=== PATIENT | male | born 1950 | race Two or more races ===

== ENCOUNTER 2023-10-07 15:38 | Inpatient (IN) | payer OTHER ==
[~2023-10-07] VITALS: Ht 172.7 cm; Wt 86.2 kg
[2023-10-07] MEDS ORDERED: TAMS0.4C (15:48)
[2023-10-07 18:28] LABS: HEMATOCRIT 24.2 % (39.0-48.0); MEAN CELL VOLUME 87.1 fL (80.0-100.00); MEAN CORPUSCULAR HGB CONC 33.3 g/dl (32.0-36.0); PLATELET COUNT 331 K/uL (150-450); RED BLOOD COUNT 2.78 M/uL (4.00-6.00); RED CELL DISTRIBUTION WIDTH 14.9 % (11.5-14.5)
[2023-10-07 18:29] LABS: HEMOGLOBIN 8.1 g/dL (13-16.00); MEAN CORPUSCULAR HEMOGLOBIN 29.1 pg (27.00-32.0)
[2023-10-07 18:38] LABS: INR < 0.93; PARTIAL THROMBOPLASTIN TIME 22.2 SECONDS (22.0-34.0); PROTHROMBIN TIME 9.8 SECONDS (9.0-11.5)
[2023-10-07 18:41] LABS: PH,URINE 6.5; URINE BILIRRUBIN NEGATIVE (NEGATIVE); URINE BLOOD LARGE; URINE LEUKOCYTE LARGE; URINE NITRATE POSITIVE
[2023-10-07 18:43] LABS: BILIRUBIN TOTAL 0.33 mg/dL (0.3-1.2); CALCIUM 8.4 mg/dL (8.5-10.1); CREATININE SERUM 1.35 mg/dL (0.70-1.30); GFR 51.66; GLOBULINA 3.1 G/DL (2.4-3.5); POTASSIUM 3.87 mEq/L (3.5-5.1); TOTAL PROTEIN 6.1 gm/dL (6.4-8.2)
[2023-10-07 18:46] LABS: URINE APPEARANCE BLOODY; URINE COLOR RED; URINE GLUCOSE 250 MG/DL (NEGATIVE); URINE PROTEIN >=300 (NEGATIVE); URINE UROBILINOGEN >= 8.0 E.U./dl
[2023-10-07 18:47] LABS: URINE RBC LOADED /HPF
[2023-10-07 18:49] LABS: URINE BACTERIA SOME; URINE MUCUS SCANT
[2023-10-07 18:51] LABS: URINE EPITHELIAL CELLS 0-4 /HPF
[2023-10-08 19:21] LABS: MEAN CELL VOLUME 88.7 fL (80.0-100.00); MEAN CORPUSCULAR HGB CONC 32.8 g/dl (32.0-36.0); PLATELET COUNT 199 K/uL (150-450); RED CELL DISTRIBUTION WIDTH 14.9 % (11.5-14.5)
[2023-10-08 19:27] LABS: MEAN CORPUSCULAR HEMOGLOBIN 29.2 pg (27.00-32.0)
[2023-10-08 19:33] LABS: HEMOGLOBIN 7.6 g/dL (13-16.00)
[2023-10-08 20:01] LABS: ALBUMIN 2.4 gm/dL (3.4-5.0); BILIRUBIN TOTAL 0.62 mg/dL (0.3-1.2); CALCIUM 7.7 mg/dL (8.5-10.1); CREATININE SERUM 0.97 mg/dL (0.70-1.30); GFR 75.66; GLOBULINA 1.6 G/DL (2.4-3.5); POTASSIUM 4.2 mEq/L (3.5-5.1)
[2023-10-09 12:27] LABS: HEMATOCRIT 25.6 % (39.0-48.0); MEAN CELL VOLUME 86.8 fL (80.0-100.00); MEAN CORPUSCULAR HGB CONC 34.9 g/dl (32.0-36.0); RED BLOOD COUNT 2.95 M/uL (4.00-6.00); RED CELL DISTRIBUTION WIDTH 14.4 % (11.5-14.5)
[2023-10-09 12:31] LABS: HEMOGLOBIN 8.9 g/dL (13-16.00); MEAN CORPUSCULAR HEMOGLOBIN 30.1 pg (27.00-32.0); PLATELET COUNT 125 K/uL (150-450)
[2023-10-09 12:37] LABS: ALBUMIN 2.3 gm/dL (3.4-5.0); BILIRUBIN TOTAL 1.39 mg/dL (0.3-1.2); CALCIUM 7.2 mg/dL (8.5-10.1); CREATININE SERUM 1.27 mg/dL (0.70-1.30); GFR 55.44; GLOBULINA 1.6 G/DL (2.4-3.5); POTASSIUM 4.23 mEq/L (3.5-5.1); TOTAL PROTEIN 3.9 gm/dL (6.4-8.2)
[2023-10-09 22:30] LABS: HEMATOCRIT 30.6 % (39.0-48.0); HEMOGLOBIN 10.6 g/dL (13-16.00); MEAN CELL VOLUME 87.3 fL (80.0-100.00); MEAN CORPUSCULAR HEMOGLOBIN 30.3 pg (27.00-32.0); MEAN CORPUSCULAR HGB CONC 34.7 g/dl (32.0-36.0); RED BLOOD COUNT 3.51 M/uL (4.00-6.00)
[2023-10-09 22:33] LABS: PLATELET COUNT 127 K/uL (150-450)
[2023-10-10 07:14] LABS: ALBUMIN 2.3 gm/dL (3.4-5.0); BILIRUBIN TOTAL 0.55 mg/dL (0.3-1.2); CALCIUM 7.7 mg/dL (8.5-10.1); CREATININE SERUM 1.4 mg/dL (0.70-1.30); GFR 49.54; POTASSIUM 3.6 mEq/L (3.5-5.1); TOTAL PROTEIN 4.3 gm/dL (6.4-8.2)
[2023-10-10 07:57] LABS: HEMATOCRIT 29.4 % (39.0-48.0); HEMOGLOBIN 10.1 g/dL (13-16.00); MEAN CELL VOLUME 89.4 fL (80.0-100.00); MEAN CORPUSCULAR HEMOGLOBIN 30.6 pg (27.00-32.0); MEAN CORPUSCULAR HGB CONC 34.2 g/dl (32.0-36.0); RED BLOOD COUNT 3.29 M/uL (4.00-6.00); RED CELL DISTRIBUTION WIDTH 14.3 % (11.5-14.5)
[2023-10-10 08:09] LABS: INR 1.06; PARTIAL THROMBOPLASTIN TIME 27.6 SECONDS (22.0-34.0); PROTHROMBIN TIME 11.1 SECONDS (9.0-11.5)
[2023-10-10 08:37] LABS: PLATELET COUNT 125 K/uL (150-450)
[2023-10-11 06:45] LABS: HEMATOCRIT 30.1 % (39.0-48.0); HEMOGLOBIN 10.4 g/dL (13-16.00); MEAN CELL VOLUME 90.6 fL (80.0-100.00); MEAN CORPUSCULAR HEMOGLOBIN 31.2 pg (27.00-32.0); MEAN CORPUSCULAR HGB CONC 34.5 g/dl (32.0-36.0); RED BLOOD COUNT 3.32 M/uL (4.00-6.00); RED CELL DISTRIBUTION WIDTH 14.8 % (11.5-14.5)
[2023-10-11 06:50] LABS: PLATELET COUNT 121 K/uL (150-450)
[2023-10-11 07:12] LABS: ALBUMIN 2.4 gm/dL (3.4-5.0); BILIRUBIN TOTAL 0.43 mg/dL (0.3-1.2); CREATININE SERUM 1.97 mg/dL (0.70-1.30); GFR 33.4; GLOBULINA 2.4 G/DL (2.4-3.5); POTASSIUM 4.83 mEq/L (3.5-5.1); TOTAL PROTEIN 4.8 gm/dL (6.4-8.2)
[2023-10-11] MEDS ORDERED: TAMSULOSIN HCL0.4 MG (09:51)
[2023-10-12 09:24] LABS: HEMATOCRIT 28.5 % (39.0-48.0); HEMOGLOBIN 9.8 g/dL (13-16.00); MEAN CELL VOLUME 89.8 fL (80.0-100.00); MEAN CORPUSCULAR HEMOGLOBIN 30.9 pg (27.00-32.0); MEAN CORPUSCULAR HGB CONC 34.4 g/dl (32.0-36.0); RED BLOOD COUNT 3.18 M/uL (4.00-6.00); RED CELL DISTRIBUTION WIDTH 14.7 % (11.5-14.5)
[2023-10-12 09:25] LABS: PLATELET COUNT 120 K/uL (150-450)
[2023-10-12 10:26] LABS: ALBUMIN 2.2 gm/dL (3.4-5.0); BILIRUBIN TOTAL 0.53 mg/dL (0.3-1.2); CALCIUM 7.8 mg/dL (8.5-10.1); CREATININE SERUM 2.17 mg/dL (0.70-1.30); GFR 29.87; GLOBULINA 2.5 G/DL (2.4-3.5); POTASSIUM 3.53 mEq/L (3.5-5.1); TOTAL PROTEIN 4.7 gm/dL (6.4-8.2)
[2023-10-13 07:26] LABS: CALCIUM 7.7 mg/dL (8.5-10.1); CREATININE SERUM 1.69 mg/dL (0.70-1.30); GFR 39.87; POTASSIUM 3.54 mEq/L (3.5-5.1)
[2023-10-14 07:09] LABS: CREATININE SERUM 1.52 mg/dL (0.70-1.30); GFR 45.05; POTASSIUM 3.47 mEq/L (3.5-5.1)
[2023-10-14 07:10] LABS: HEMATOCRIT 28.3 % (39.0-48.0); HEMOGLOBIN 9.8 g/dL (13-16.00); MEAN CELL VOLUME 88.9 fL (80.0-100.00); MEAN CORPUSCULAR HEMOGLOBIN 30.9 pg (27.00-32.0); MEAN CORPUSCULAR HGB CONC 34.8 g/dl (32.0-36.0); RED BLOOD COUNT 3.19 M/uL (4.00-6.00); RED CELL DISTRIBUTION WIDTH 14.5 % (11.5-14.5)
[2023-10-14 08:14] LABS: PLATELET COUNT 134 K/uL (150-450)
== END 2023-10-15 20:33 | disposition home or self-care (01) | DRG 669 ==
LOC: ER 15:39 → MEDJ 20:55 → ICU 10-08 20:15 → SURG 10-11 18:19 → MEDI 10-12 09:47
PROVIDERS: Urology; ADMIT Internal Medicine; ATTEND Internal Medicine
PROC: 30233N1 Transfusion of Nonautologous Red Blood Cells into Peripheral Vein, Percutaneous Approach (ICD-10-PCS; 2023-10-08)
PROC: 0TBB8ZZ Excision of Bladder, Via Natural or Artificial Opening Endoscopic (ICD-10-PCS; principal; 2023-10-08 09:45)
PROC: B246ZZZ Ultrasonography of Right and Left Heart (ICD-10-PCS; 2023-10-09)
PROC: BW21ZZZ Computerized Tomography (CT Scan) of Abdomen and Pelvis (ICD-10-PCS; 2023-10-11)
DX: C67.9 Malignant neoplasm of bladder, unspecified (principal); I24.89 Other forms of acute ischemic heart disease; N30.91 Cystitis, unspecified with hematuria; R31.0 Gross hematuria; D64.89 Other specified anemias; I11.9 Hypertensive heart disease without heart failure

== ENCOUNTER 2023-12-24 09:35 | Day surgery (SDC) | payer OTHER ==
[2023-12-08 09:52] LABS: HEMATOCRIT 37.1 % (39.0-48.0); MEAN CELL VOLUME 79.2 fL (80.0-100.00); MEAN CORPUSCULAR HEMOGLOBIN 25.6 pg (27.00-32.0); MEAN CORPUSCULAR HGB CONC 32.3 g/dl (32.0-36.0); PLATELET COUNT 342 K/uL (150-450); RED BLOOD COUNT 4.68 M/uL (4.00-6.00); RED CELL DISTRIBUTION WIDTH 16.4 % (11.5-14.5)
[2023-12-08 09:54] LABS: URINE APPEARANCE Turbid; URINE BILIRRUBIN Negative (NEGATIVE); URINE BLOOD Large; URINE COLOR Yellow; URINE GLUCOSE Negative (NEGATIVE); URINE LEUKOCYTE Large; URINE NITRATE Positive; URINE UROBILINOGEN 0.2 E.U./dl
[2023-12-08 10:00] LABS: URINE EPITHELIAL CELLS 4.6 uL (0.0-38.8); URINE RBC 1336.9 uL (0.0-20.8)
[2023-12-08 10:10] LABS: PARTIAL THROMBOPLASTIN TIME 30.4 SECONDS (22.0-34.0); PROTHROMBIN TIME 10.5 SECONDS (9.0-11.5)
[2023-12-08 10:14] LABS: URINE BACTERIA > 9821.5 uL (0.0-1933); URINE PROTEIN 100 (NEGATIVE); URINE WBC > 5548.3 uL (0.0-23.2)
[2023-12-08 10:16] LABS: URINE YEAST FEW /hpf
[2023-12-08 10:38] LABS: CALCIUM 9.6 mg/dL (8.5-10.1); CREATININE SERUM 0.87 mg/dL (0.70-1.30); GFR 85.78; POTASSIUM 4.25 mEq/L (3.5-5.1)
[~2023-12-24 09:35] MED LIST: TAMS0.4C; TAMS0.4C PO; TAMSULOSIN HCL0.4 MG; TENORMIN25 MG PO
[2023-12-24] MEDS ORDERED: IOVERSOL 320 MG/ML - 50 ML VIAL IV ONE (13:28)
[2023-12-24] MEDS ORDERED: CHLORHEXIDINE GLUCONATE 120 ML BOTTLE TOP ONE ×2 (13:28→14:00)
[2023-12-24] MEDS ORDERED: GENTAMICIN SULFATE 40 MG/ML VIAL ONE (13:33)
[2023-12-24] MEDS ORDERED: GENTAMICIN SULFATE 40 MG/ML VIAL IV ONE (14:00)
== END 2023-12-24 19:30 | disposition home or self-care (01) ==
LOC: CIR.AMB 09:35
PROVIDERS: ATTEND Urology
DX: C67.9 Malignant neoplasm of bladder, unspecified (principal); Z20.822 Contact with and (suspected) exposure to COVID-19

== ENCOUNTER 2024-01-11 21:56 | Inpatient (IN) | payer OTHER ==
[~2024-01-11] VITALS: Ht 170.2 cm; Wt 83.9 kg
[2024-01-11] MEDS ORDERED: COZAAR25 MG PO (22:15)
[2024-01-11] MEDS ORDERED: MEPERIDINE HCL/PF 50 MG/ML VIAL IM ONE (22:30)
[2024-01-11] MEDS ORDERED: PROMETHAZINE HCL 50 MG/ML AMPUL IM ONE (22:30)
[2024-01-11 23:17] LABS: URINE APPEARANCE Turbid; URINE BILIRRUBIN Moderate (NEGATIVE); URINE BLOOD Moderate; URINE COLOR Red; URINE GLUCOSE Negative (NEGATIVE); URINE LEUKOCYTE Large; URINE NITRATE Positive; URINE UROBILINOGEN 0.2 E.U./dl
[2024-01-11 23:20] LABS: HEMATOCRIT 31.8 % (39.0-48.0); MEAN CELL VOLUME 75.4 fL (80.0-100.00); MEAN CORPUSCULAR HEMOGLOBIN 23.7 pg (27.00-32.0); MEAN CORPUSCULAR HGB CONC 31.5 g/dl (32.0-36.0); PLATELET COUNT 354 K/uL (150-450); RED BLOOD COUNT 4.22 M/uL (4.00-6.00); RED CELL DISTRIBUTION WIDTH 17.9 % (11.5-14.5)
[2024-01-11 23:21] LABS: URINE BACTERIA 2051.2 uL (0.0-1933); URINE EPITHELIAL CELLS 19.1 uL (0.0-38.8); URINE WBC 3788.3 uL (0.0-23.2)
[2024-01-11 23:34] LABS: CALCIUM 9.1 mg/dL (8.5-10.1); CREATININE SERUM 1.37 mg/dL (0.70-1.30); GFR 50.79; POTASSIUM 4.09 mEq/L (3.5-5.1)
[2024-01-11] MEDS ORDERED: CEFTRIAXONE SODIUM 1,000 MG VIAL IV ONE (23:45)
[2024-01-12 00:31] LABS: URINE PROTEIN 100 (NEGATIVE)
[2024-01-12 00:32] LABS: URINE RBC > 20.8 uL (0.0-20.8)
[2024-01-12] MEDS ORDERED: MEPERIDINE HCL/PF 50 MG/ML VIAL IM STA ×2 (01:01→06:44)
[2024-01-12] MEDS ORDERED: CIPRO500 MG PO (04:26)
[2024-01-12] MEDS ORDERED: PERCOCET 5-3251 EACH PO (04:26)
[2024-01-12] MEDS ORDERED: CEFTRIAXONE SODIUM 1,000 MG VIAL IV SCH (09:19)
[2024-01-12] MEDS ORDERED: SODIUM CHLORIDE 0.45 % 1,000 ML IV SCH (09:25)
[2024-01-12] MEDS ORDERED: ONDANSETRON HCL 2 MG/ML VIAL IV PRN (09:30)
[2024-01-12] MEDS ORDERED: MEPERIDINE HCL/PF 50 MG/ML VIAL IM PRN (23:45)
[2024-01-13 05:06] LABS: HEMATOCRIT 32.5 % (39.0-48.0); MEAN CORPUSCULAR HGB CONC 31.6 g/dl (32.0-36.0); PLATELET COUNT 341 K/uL (150-450); RED BLOOD COUNT 4.28 M/uL (4.00-6.00)
[2024-01-13 05:25] LABS: HEMOGLOBIN 10.3 g/dL (13-16.00)
[2024-01-13 05:32] LABS: INR 1.06; PARTIAL THROMBOPLASTIN TIME 32.8 SECONDS (22.0-34.0); PROTHROMBIN TIME 11.1 SECONDS (9.0-11.5)
[2024-01-13 05:39] LABS: ALBUMIN 2.7 gm/dL (3.4-5.0); BILIRUBIN TOTAL 0.29 mg/dL (0.3-1.2); CALCIUM 8.5 mg/dL (8.5-10.1); CREATININE SERUM 0.72 mg/dL (0.70-1.30); GFR 106.71; GLOBULINA 3.2 G/DL (2.4-3.5); POTASSIUM 4.37 mEq/L (3.5-5.1); TOTAL PROTEIN 5.9 gm/dL (6.4-8.2)
[2024-01-13] MEDS ORDERED: CEFTRIAXONE SODIUM 2,000 MG VIAL IV SCH (09:00)
== END 2024-01-15 14:25 | disposition home or self-care (01) | DRG 690 ==
LOC: ER 21:56 → SEC-K 01-12 09:48 → MEDI 01-12 09:48
PROVIDERS: Emergency Medicine; ADMIT Urology; ATTEND Urology
PROC: BW21ZZZ Computerized Tomography (CT Scan) of Abdomen and Pelvis (ICD-10-PCS; principal; 2024-01-11)
DX: N39.0 Urinary tract infection, site not specified (principal); B96.5 Pseudomonas (aeruginosa) (mallei) (pseudomallei) as the cause of diseases classified elsewhere; R31.0 Gross hematuria; C67.9 Malignant neoplasm of bladder, unspecified

== ENCOUNTER 2024-01-19 07:04 | Outpatient (CLI) | payer OTHER ==
[~2024-01-19 07:04] MED LIST changes: +CIPRO500 MG PO; +COZAAR25 MG PO; +PERCOCET 5-3251 EACH PO
== END 2024-01-19 07:12 | disposition home or self-care (01) ==
LOC: TOM 07:04
PROVIDERS: ATTEND Urology
DX: C67.9 Malignant neoplasm of bladder, unspecified (principal)

== ENCOUNTER 2024-06-21 07:18 | Outpatient (CLI) | payer OTHER | END 2024-06-21 07:20 | disposition home or self-care (01) | LOC: TOM 07:18 | PROVIDERS: ATTEND Urology | DX: C67.9 Malignant neoplasm of bladder, unspecified (principal); R31.1 Benign essential microscopic hematuria | CPT/HCPCS: 74178; Q9965 ==

== ENCOUNTER 2024-09-07 12:03 | Outpatient (CLI) | payer OTHER | END 2024-09-07 12:08 | disposition home or self-care (01) | LOC: NUCLEAR 12:03 | PROVIDERS: ATTEND Urology | DX: N13.1 Hydronephrosis with ureteral stricture, not elsewhere classified (principal) | CPT/HCPCS: 78709; A9539; J1940 ==

== ENCOUNTER 2025-04-04 07:47 | Outpatient (CLI) | payer OTHER | END 2025-04-04 07:50 | disposition home or self-care (01) | LOC: TOM 07:47 | PROVIDERS: ATTEND Urology | DX: C67.9 Malignant neoplasm of bladder, unspecified (principal) | CPT/HCPCS: 74178; Q9965 ==

== ENCOUNTER 2025-05-24 09:39 | Outpatient (CLI) | payer OTHER | END 2025-05-24 09:42 | disposition home or self-care (01) | LOC: SONOGRAMA 09:39 | PROVIDERS: ATTEND Urology | DX: R33.9 Retention of urine, unspecified (principal) ==

== ENCOUNTER 2025-07-27 15:30 | Emergency (ER) | payer OTHER ==
[~2025-07-27] VITALS: Ht 167.6 cm; Wt 81.6 kg
== END 2025-07-27 17:01 | disposition home or self-care (01) ==
LOC: ER 15:30
DX: T83.098A Other mechanical complication of other urinary catheter, initial encounter (principal)

== ENCOUNTER 2025-09-19 02:53 | Emergency (ER) | payer OTHER ==
[~2025-09-19] VITALS: Ht 167.6 cm; Wt 81.6 kg
[2025-09-19 03:10] VITALS: BP 180/100; O2SAT 98
[2025-09-19] MEDS ORDERED: METHENAMINE HIPP1 GM (03:13)
[2025-09-19] MEDS ORDERED: PYRIDIUM100 M1 (03:14)
[2025-09-19] MEDS ORDERED: CAPTOPRIL 25 MG TABLET PO STA (04:24)
[2025-09-19 05:32] LABS: URINE APPEARANCE Turbid; URINE BILIRRUBIN Negative (NEGATIVE); URINE BLOOD Large; URINE COLOR Dark Yellow; URINE GLUCOSE Negative (NEGATIVE); URINE KETONE Negative (NEGATIVE); URINE LEUKOCYTE Large; URINE NITRATE Positive; URINE UROBILINOGEN 1.0 E.U./dl
[2025-09-19 05:36] LABS: URINE CAST 1.84 uL (0.0-1.40); URINE EPITHELIAL CELLS 2.4 uL (0.0-38.8); URINE RBC 757.3 uL (0.0-20.8)
[2025-09-19 06:05] LABS: URINE BACTERIA > 9821.5 uL (0.0-1933); URINE PROTEIN 100 (NEGATIVE)
[2025-09-19] MEDS ORDERED: LOSARTAN POTASS50 MG PO (06:41)
== END 2025-09-19 07:59 ==
LOC: ER 02:53
PROVIDERS: General Practice
DX: T83.098A Other mechanical complication of other urinary catheter, initial encounter (principal); N40.0 Benign prostatic hyperplasia without lower urinary tract symptoms; I10 Essential (primary) hypertension; N39.0 Urinary tract infection, site not specified; I49.8 Other specified cardiac arrhythmias

== ENCOUNTER → 2025-09-29 | Emergency (ER) | payer OTHER ==
[~2025-09-29] VITALS: Ht 167.6 cm; Wt 81.6 kg
[~2025-09-29] MED LIST changes: +CEFTRIAXONE SODIUM 1,000 MG VIAL IM ONE; +ENALAPRILAT DIHYDRATE 2.5 MG/2 ML VIAL IV ONE; +LEVOFLOXACIN500 MG PO; +LOSARTAN POTASS50 MG PO; +LOSARTAN POTASSIUM 50 MG TABLET PO ONE; +METHENAMINE HIPP1 GM; +NIFEDIPINE 30 MG TAB.SA.OSM PO ONE; +PEPCID AC20 MG PO; +PYRIDIUM100 M1
[2025-09-29 21:33] LABS: BASO % 0.8 % (0.1-1.2); EOS # 0.20 (0.04-0.54); EOS % 1.4 % (0.7-7.0); LYMPH # 1.15 (1.18-3.74); LYMPH % 8.2 % (19.3-53.1); MEAN PLATELET VOLUME 10.60 fl (9.4-12.4); MONO # 1.22 (0.24-0.82); MONO % 8.7 % (4.7-12.5); NEUT # 11.00 (1.56-6.13); NEUT % 78.1 % (34.0-71.1); RED CELL DISTRIBUTION WIDTH 14.6 % (11.6-14.4)
[2025-09-29 22:07] LABS: URINE APPEARANCE Turbid; URINE BILIRRUBIN Negative (NEGATIVE); URINE BLOOD Moderate; URINE COLOR Yellow; URINE GLUCOSE Negative (NEGATIVE); URINE KETONE Negative (NEGATIVE); URINE LEUKOCYTE Large; URINE NITRATE Negative; URINE PROTEIN Trace (NEGATIVE); URINE UROBILINOGEN 0.2 E.U./dl
[2025-09-29 22:11] LABS: URINE CAST 4.95 uL (0.0-1.40); URINE EPITHELIAL CELLS 12.4 uL (0.0-38.8); URINE RBC 7.7 uL (0.0-20.8)
[2025-09-29 22:21] LABS: BUN CREA RATIO 15.0 (7.0-25.0); CREATININE SERUM 1.53 mg/dL (0.70-1.30); GFR 44.47; GLUCOSE FASTING 122.0 mg/dL (65-100); OSMOLALITY SERUM 288.0 MOSM/KG (275-295)
== END | disposition home or self-care (01) ==
LOC: ER 18:14
PROVIDERS: General Practice
DX: T83.9XXA Unspecified complication of genitourinary prosthetic device, implant and graft, initial encounter (principal); N39.0 Urinary tract infection, site not specified; R10.20 Pelvic and perineal pain unspecified side; I10 Essential (primary) hypertension